=== PATIENT | female | born 1945 | race Caucasian/White ===

== ENCOUNTER → 2022-10-05 | Outpatient (CLI) | payer MEDICARE ==
[~2022-10-05] MED LIST: ADV250INH INH; ALBU0.084 INH; COMBIN INH; COUM1TAB17 PO; COUM7.5T6 PO; FLUO20CA8 PO; FLUT50SP; HYDR-3644 PO; LEVO125T3 PO; LOSA100T36 PO; LYRI75CA PO; NYSTCRE3 TOP; PANT40TA2 PO; PERCOCET PO; TUMS500C PO; TYLE325T5 PO; VITA100054 PO; ZYRT10CA PO
== END ==
LOC: M RAD 11:02
PROVIDERS: ATTEND Nurse Practitioner Family
DX: I73.9 Peripheral vascular disease, unspecified (principal)

== ENCOUNTER → 2025-07-31 | Outpatient (CLI) | payer MEDICARE ==
[~2025-07-31] MED LIST changes: +ALBU8.5H; +BUDE10.7; +CARB400T11 PO; +CLIN150C17 PO; +FLON1SPR; +FLUO-365 PO; +GNPTAB36 PO; +HYDR-3490 PO; +IPRA0.00; +LEVO125T4 PO; +LINE1TAB6 PO; +LOSA100T46 PO; +NEBI20TA2 PO; +OXYC-517 PO; +PANT40TA29 PO
[2025-07-31 11:18] VITALS: TEMP 98.6
[2025-07-31 12:00] VITALS: BP 110/72; O2SAT 98
== END ==
LOC: M WHCPRO 10:30
PROVIDERS: ATTEND Surgery
DX: D05.12 Intraductal carcinoma in situ of left breast (principal)
CPT/HCPCS: 19281; 19282; 77065; C1739

== ENCOUNTER 2025-08-22 08:20 | Day surgery (SDC) | payer MEDICARE ==
[~2025-08-22] VITALS: Ht 162.6 cm; Wt 112.8 kg
[~2025-08-22 08:20] MED LIST changes: -ALBU8.5H; +ALBU8.5H INH; -BUDE10.7; +BUDE10.7 INH; -CLIN150C17 PO; -LINE1TAB6 PO; -OXYC-517 PO
[2025-08-22] MEDS ORDERED: LR 1,000 ML IV SCH (08:50)
[2025-08-22] MEDS ORDERED: LIDOCAINE 2% 100 MG/5 ML SDV (FOR ANES.) As Ordered ONE (08:58)
[2025-08-22] MEDS ORDERED: ONDANSETRON 4MG/2ML VIAL As Ordered ONE (08:58)
[2025-08-22] MEDS ORDERED: dexAMETHasone 4 MG/ML 1 ML VIAL As Ordered ONE (08:58)
[2025-08-22] MEDS ORDERED: ACETAMINOPHEN 1000MG/100ML IV BAG As Ordered ONE (09:00)
[2025-08-22] MEDS: ceFAZolin SOD 2 GM IV ONCE IV ONE (10:43)
[2025-08-22] MEDS ORDERED: LABETALOL 100 MG/20 ML VIAL As Ordered ONE (10:48)
[2025-08-22] MEDS ORDERED: OXYC-517 PO (12:44)
[2025-08-22] MEDS: HYDROMORPHONE HCL 0.5 MG/0.5 ML SYRINGE IV PRN (13:15)
[2025-08-22] MEDS: ONDANSETRON 4MG/2ML VIAL IV PRN (13:16)
[2025-08-22 14:32] VITALS: BP 144/71; TEMP 97.3; O2SAT 93
[2025-08-29] MEDS ORDERED: CLIN150C17 PO (16:35)
[2025-08-29] MEDS ORDERED: LINE1TAB6 PO (16:41)
== END 2025-08-22 14:45 | disposition home or self-care (01) ==
LOC: M SDC 08:20
PROVIDERS: ATTEND Surgery
DX: D05.12 Intraductal carcinoma in situ of left breast (principal); M19.90 Unspecified osteoarthritis, unspecified site; I10 Essential (primary) hypertension; K21.9 Gastro-esophageal reflux disease without esophagitis; F41.9 Anxiety disorder, unspecified; F32.A Depression, unspecified; E03.9 Hypothyroidism, unspecified; J45.909 Unspecified asthma, uncomplicated; J44.9 Chronic obstructive pulmonary disease, unspecified; Z88.0 Allergy status to penicillin; Z88.1 Allergy status to other antibiotic agents; Z91.018 Allergy to other foods; Z88.2 Allergy status to sulfonamides; Z91.013 Allergy to seafood; Z79.899 Other long term (current) drug therapy; Z79.890 Hormone replacement therapy; Z79.51 Long term (current) use of inhaled steroids
CPT/HCPCS: 19301; 88302; 88305; 88307; J0131; J0688; J1100; J1171; J2405; J3010

== ENCOUNTER → 2025-08-29 | Outpatient (CLI) | payer MEDICARE ==
[~2025-08-29] MED LIST changes: +ALBU8.5H; -ALBU8.5H INH; +BUDE10.7; -BUDE10.7 INH; +CLIN150C17 PO; +LINE1TAB6 PO; +OXYC-517 PO
== END ==
LOC: M ONCR 15:13
PROVIDERS: ATTEND General Practice
DX: D05.12 Intraductal carcinoma in situ of left breast (principal); N61.22 Granulomatous mastitis, left breast; Z17.0 Estrogen receptor positive status [ER+]; Z17.21 Progesterone receptor positive status; Z98.890 Other specified postprocedural states; Z98.51 Tubal ligation status; Z90.710 Acquired absence of both cervix and uterus; Z87.891 Personal history of nicotine dependence; Z88.0 Allergy status to penicillin; Z88.1 Allergy status to other antibiotic agents; Z88.2 Allergy status to sulfonamides; Z88.6 Allergy status to analgesic agent; Z91.018 Allergy to other foods; Z91.013 Allergy to seafood; Z79.51 Long term (current) use of inhaled steroids; Z79.899 Other long term (current) drug therapy